=== PATIENT | female | born 1945 | race Caucasian/White ===

== ENCOUNTER 2021-03-09 12:34 | Emergency (ER) | payer OTHER ==
[~2021-03-09] VITALS: Ht 170.2 cm; Wt 68.0 kg
[2021-03-09] MEDS ORDERED: PRAVASTATIN SOD20 MG PO (13:10)
[2021-03-09] MEDS ORDERED: LEVEMIR FL100 UNIT/1 SQ (13:11)
[2021-03-09] MEDS ORDERED: ACID REDUCER20 M1 PO (13:11)
[2021-03-09] MEDS ORDERED: XELPROS2.5 ML OP (13:11)
[2021-03-09] MEDS ORDERED: XIFAXAN550 MG PO (13:14)
[2021-03-09] MEDS ORDERED: LASIX20 MG PO (13:14)
[2021-03-09] MEDS ORDERED: PROLIA60 MG/1 ML SQ (13:14)
[2021-03-09] MEDS ORDERED: ALDACTONE100 MG PO (13:14)
[2021-03-09] MEDS ORDERED: MULTI VITAMIN1 EACH PO (13:15)
[2021-03-09] MEDS ORDERED: ULTRACET PO (15:16)
[2021-03-09] MEDS ORDERED: AMOX1TAB5 PO (15:16)
== END 2021-03-09 15:55 | disposition home or self-care (01) ==
LOC: ER 12:34
DX: S01.521A Laceration with foreign body of lip, initial encounter (principal); W01.118A Fall on same level from slipping, tripping and stumbling with subsequent striking against other sharp object, initial encounter; Y93.89 Activity, other specified; Y92.520 Airport as the place of occurrence of the external cause; Y99.8 Other external cause status